=== PATIENT | male | born 1935 | race Caucasian/White ===

== ENCOUNTER → 2017-06-21 | Outpatient (CLI) | payer OTHER | LOC: FIMAGING 10:50 | DX: I10 Essential (primary) hypertension (principal); Z98.890 Other specified postprocedural states; Z87.891 Personal history of nicotine dependence ==

== ENCOUNTER 2017-07-01 19:18 | Emergency (ER) | payer OTHER ==
[2017-07-01 19:26] VITALS: PULSE 85; RESP 16; TEMP 97.7; O2SAT 95
[2017-07-01 19:37] VITALS: BP 197/87
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
== END 2017-07-01 20:07 | disposition home or self-care (01) ==
LOC: EDUNIT#
DX: S40.011A Contusion of right shoulder, initial encounter (principal); I10 Essential (primary) hypertension; I25.10 Atherosclerotic heart disease of native coronary artery without angina pectoris; J44.9 Chronic obstructive pulmonary disease, unspecified; Z87.891 Personal history of nicotine dependence; W20.8XXA Other cause of strike by thrown, projected or falling object, initial encounter; Y99.8 Other external cause status; Y93.01 Activity, walking, marching and hiking

== ENCOUNTER 2018-01-24 19:26 | Observation (INO) | payer OTHER ==
[2018-01-24] MEDS ORDERED: NS 1,000 ML IV ONE (19:42)
[2018-01-24] MEDS ORDERED: ONDANSETRON DISINTEGRATING 4 MG TAB PO ONE (19:42)
[2018-01-24] MEDS ORDERED: MECLIZINE HCL 25 MG TAB PO ONE (19:42)
--- NOTE | 2018-01-24 19:42 | EDPHY ---
H & P Stated Complaint: vertigo nausea Time Seen by Provider: 01/24/18 19:27 HPI/ROS: CHIEF COMPLAINT: Vertigo HISTORY OF PRESENT ILLNESS: The patient presents the ED with an episode of acute peripheral vertigo which began earlier today. The patient has a history of intermittent BPV. Patient did have his primary care provider attempt the Rachid maneuver without improvement of his symptoms. Today he developed some nausea and vomiting and worsening vertigo. He had no medications at home for management of the symptoms and presents to the ED for further evaluation. Patient denies any history of fall or trauma. He denies any complaints of numbness or weakness in the extremities. He has no problems with his vision or speech. REVIEW OF SYSTEMS: A comprehensive 10 point review of systems is otherwise negative aside from elements mentioned in the history of present illness. Source: Patient Exam Limitations: No limitations - Personal History Current Tetanus/Diphtheria Vaccine: Yes Current Tetanus Diphtheria and Acellular Pertussis (TDAP): Yes - Medical/Surgical History Hx Asthma: Yes Hx Chronic Respiratory Disease: Yes Hx Diabetes: No Hx Cardiac Disease: Yes Hx Renal Disease: No Hx Cirrhosis: No Hx Alcoholism: No Hx HIV/AIDS: No Hx Splenectomy or Spleen Trauma: No Other PMH: copd, htn, CAD, Heart stents x 9. Carotid stent - Social History Smoking Status: Former smoker - Physical Exam Exam: General Appearance: Alert, no distress Eyes: Pupils equal and round no pallor or injection ENT, Mouth: Mucous membranes moist Respiratory: There are no retractions, lungs are clear to auscultation Cardiovascular: Regular rate and rhythm Gastrointestinal: Abdomen is soft and nontender, no masses, bowel sounds normal Neurological: A&O, normal motor function, normal sensory exam, normal cranial nerves, mild horizontal nystagmus noted with rightward gaze Skin: Warm and dry, no rashes Musculoskeletal: Neck is supple nontender Extremities: symmetrical, full range of motion Psychiatric: Patient is oriented X 3, there is no agitation Constitutional: Initial Vital Signs Temperature (C) 36.6 C 01/24/18 19:30 Heart Rate 73 01/24/18 19:30 Respiratory Rate 18 01/24/18 19:30 Blood Pressure 190/86 H 01/24/18 19:30 O2 Sat (%) 93 01/24/18 19:30 O2 Delivery Mode Room Air Allergies/Adverse Reactions: loratadine Allergy (Verified 07/01/17 19:26) Home Medications: Medication Instructions Recorded Albuterol 07/01/17 Atorvastatin Calcium 07/01/17 Pantoprazole Sodium 07/01/17 Symbicort 160-4.5 Mcg Inh (*) 07/01/17 Medical Decision Making ED Course/Re-evaluation: The patient presents to the ED with fairly typical benign positional vertigo. Patient received meclizine and Zofran in the emergency department. He also received 1 L of normal saline. CBC and serum chemistries are unremarkable. The patient underwent serial examinations over a 3 hr period in the emergency department. He continues to have ongoing vertigo and is unable to safely ambulate. He will require admission to the hospital. The patient's neurologic examination suggest no features of central vertigo. Consultation was made with the hospitalist service. The patient will be admitted by Dr. Call this evening. Blood pressure recheck at 10:15 p.m. is 170/82. Differential Diagnosis: Differential diagnosis considered includes benign positional vertigo, labyrinthitis, TIA, central vertigo - Data Points Laboratory Results: Laboratory Results 01/24/18 20:30 01/24/18 20:30 01/24/18 01/24/18 20:30 20:30 WBC 5.27 10^3/uL 10^3/uL (3.80-9.50) RBC 4.72 10^6/uL 10^6/uL (4.40-6.38) Hgb 14.6 g/dL g/dL (13.7-17.5) Hct 43.4 % % (40.0-51.0) MCV 91.9 fL fL (81.5-99.8) MCH 30.9 pg pg (27.9-34.1) MCHC 33.6 g/dL g/dL (32.4-36.7) RDW 13.2 % % (11.5-15.2) Plt Count 180 10^3/uL 10^3/uL (150-400) MPV 10.7 fL fL (8.7-11.7) Neut % (Auto) 80.5 % H % (39.3-74.2) Lymph % (Auto) 12.5 % L % (15.0-45.0) [place] % (Auto) 5.1 % % (4.5-13.0) Eos % (Auto) 0.9 % % (0.6-7.6) Baso % (Auto) 0.8 % % (0.3-1.7) Nucleat RBC Rel Count 0.0 % % (0.0-0.2) Absolute Neuts (auto) 4.24 10^3/uL 10^3/uL (1.70-6.50) Absolute Lymphs (auto) 0.66 10^3/uL L 10^3/uL (1.00-3.00) Absolute Monos (auto) 0.27 10^3/uL L 10^3/uL (0.30-0.80) Absolute Eos (auto) 0.05 10^3/uL 10^3/uL (0.03-0.40) Absolute Basos (auto) 0.04 10^3/uL 10^3/uL (0.02-0.10) Absolute Nucleated RBC 0.00 10^3/uL 10^3/uL (0-0.01) Immature Gran % 0.2 % % (0.0-1.1) Immature Gran # 0.01 10^3/uL 10^3/uL (0.00-0.10) Sodium 140 mEq/L mEq/L (135-145) Potassium 4.1 mEq/L mEq/L (3.3-5.0) Chloride 107 mEq/L mEq/L (97-110) Carbon Dioxide 23 mEq/l mEq/l (22-31) Anion Gap 10 mEq/L mEq/L (8-16) BUN 20 mg/dL mg/dL (7-23) Creatinine 0.7 mg/dL mg/dL (0.7-1.3) Estimated GFR > 60 Glucose 104 mg/dL H mg/dL (70-100) Calcium 8.5 mg/dL mg/dL (8.5-10.4) Medications Given: Discontinued Medications Sodium Chloride (Ns) 1,000 mls @ 0 mls/hr IV EDNOW ONE; Wide Open PRN Reason: Protocol Stop: 01/24/18 19:43 Last Admin: 01/24/18 20:00 Dose: 1,000 mls Meclizine HCl (Meclizine Hcl) 25 mg PO EDNOW ONE Stop: 09/27/18 19:43 Last Admin: 01/24/18 19:58 Dose: 25 mg Ondansetron HCl (Zofran Odt) 4 mg PO EDNOW ONE Stop: 01/24/18 19:43 Last Admin: 01/24/18 19:57 Dose: 4 mg Departure - Departure Disposition: [facility] Inpatient Acute Clinical Impression: Benign positional vertigo Condition: Good Referrals: Patient,NotPresent [Unknown] - As per Instructions
[2018-01-24 20:40] LABS: PLATELET COUNT 180 10^3/uL (150-400)
[2018-01-24] MEDS ORDERED: ONDANSETRON 4 MG/2 ML VIAL IVP PRN (22:52)
[2018-01-24] MEDS ORDERED: ACETAMINOPHEN 325 MG TAB PO PRN (22:52)
[2018-01-24] MEDS ORDERED: MECLIZINE HCL 25 MG TAB PO PRN (22:55)
[2018-01-24] MEDS ORDERED: LORazepam 2 MG/ML INJ IVP PRN (22:55)
[2018-01-24] MEDS ORDERED: NS 1,000 ML IV SCH (23:00)
--- NOTE | 2018-01-24 23:03 | PDGENHP ---
History and Physical - Chief Complaint Vertigo - History of Present Illness Source-patient able to provide history appears reliable. His fiancee is at bedside supplements details. EMR was reviewed and case discussed with ED provider. HPI-pleasant 82-year-old gentleman with past medical history significant for COPD, HLD, CAD with history of stenting x9 carotid artery stenosis status post bilateral stenting eczema and a history of a vertigo in 2013 who presents to the emergency department today with complaints of sudden onset of symptoms starting earlier today. Patient reports that he has alternating spinning to the right and to the left. He developed nausea vomiting. He went to see his PCP at the [place] on an Rachid maneuver was attempted but worsened his symptoms. On patient denies any acute changes in vision aside from the spitting he does not have any diplopia or visual deficits. He denies any numbness tingling in or tinnitus. Patient does report a headache behind his eyes. He denies any history of migraine headaches or headaches on her normal basis. Patient due to his vertiginous symptoms reports that he was unable to stand with any stability and given his persistent nausea vomiting he presented to the ED for further evaluation. In the ED, patient received IV fluids and meclizine. He denies any improvement in his symptoms any continues to alternate on spinning to the right than the left. Patient reports that he has had poor oral intake and hydration throughout the course the day and feels quite dehydrated. Patient reports in 2013 he had similar symptoms in required hospitalization for approximately 3 days before his symptoms spontaneously resolved. Patient denies any fevers chills or recent illness. Tonya reports that he is always feeling cold. History Information - Allergies/Home Medication List Allergies/Adverse Reactions: loratadine Allergy (Verified 07/01/17 19:26) Home Medications: Albuterol 07/01/17 [Last Taken Unknown] Atorvastatin Calcium 07/01/17 [Last Taken Unknown] Pantoprazole Sodium 07/01/17 [Last Taken Unknown] Symbicort 160-4.5 Mcg Inh (*) 07/01/17 [Last Taken Unknown] I have personally reviewed and updated: family history, medical history, social history, surgical history - Past Medical History Additional medical history: BPPV in 2013 patient was admitted to the [place] in [place] for 3 days due to symptoms which resolved spontaneously. COPD, asthma. Patient reports per previous oxygen dependence however when he temporarily moved to [place] he no longer required it and has not had any oxygen since returning back to [place]. HLD. CAD with history of stenting x9. Carotid artery stenosis status post stenting bilaterally. Eczema to lower extremities - Surgical History Additional surgical history: Cardiac cath with stenting. Carotid artery stenting. Hernia repair. Left foot surgery for a benign growth. Cataract extraction with lens placement bilaterally. - Family History Additional family history: Brother with history of seizures. Denies any family history of vertigo, CAD, CVA. - Social History Smoking Status: Former smoker (Patient quit at age 37) Alcohol Use: Rarely Drug Use: None Additional social history: Patient is engaged. Cor status DNR DNI. Review of Systems Review of Systems: ROS: 10pt was reviewed & negative except for what was stated in HPI & below Constitutional: Reports: chills (Always cold.). Denies: fever, recent illness EENMT: Denies: blurred vision, nose congestion, sore throat Cardiac: Reports: no symptoms Respiratory: Reports: cough (Chronic nonproductive cough) Gastrointestinal: Reports: vomitting, nausea. Denies: abdominal pain, diarrhea Genitourinary: Reports: no symptoms Muscolosketal: Reports: joint pain (Bilateral knees.). Denies: muscle pain Skin: Reports: rash (Patient with history of eczema. Chronic persistent rashes to right anterior leg left lateral knee and posterior knees.) Neurological: Reports: other (HPI). Denies: anxiety, depressed, numbness, tingling Hematologic/Lymphatic: Reports: no symptoms Physical Exam Physical Exam: Selected Entries 01/24/18 19:30 Blood Pressure Automatic Method Heart Rate 73 Respiratory 18 Rate O2 Sat (%) 93 Temperature (C) 36.6 C Blood Pressure 190/86 H Mean Arterial 120 H Pressure (MAP) O2 Delivery Room Air Mode Temperature Oral Source Temp Pulse Resp BP Pulse Ox 36.6 C 74 18 181/91 H 96 01/24/18 19:30 01/24/18 22:54 01/24/18 22:54 01/24/18 22:54 01/24/18 22:54 Constitutional: no apparent distress, chronically ill appearing, uncomfortable, other (NAD. Patient lays quietly in bed he is wrapped in multiple layers of blankets. His fiancee is at bedside.) Eyes: PERRL (Decreased reactivity to light bilaterally but symmetric no scleral icterus 2nd), anicteric sclera, EOMI, scleral injection, other (Positive for nystagmus with to the right) Ears, Nose, Mouth, Throat: hearing normal, dry mucous membranes, hard of hearing (Does wear hearing aids), other (No nasal discharge), No oral ulcer, No poor dentition (Upper edentulous) Cardiovascular: regular rate and rhythym, no murmur, rub, or gallop (Slightly distant heart sounds limiting exam.), pulses symmetric bilaterally, No edema Peripheral Pulses: 1+: dorsalis-pedis (R), dorsalis-pedis (L) Respiratory: no respiratory distress, no rales or rhonchi, clear to auscultation , reduced air movement (Decreased movement bibasilarly. Overall clear.) Gastrointestinal: normoactive bowel sounds, soft, non-tender abdomen, no palpable masses, No distension Genitourinary: no bladder tenderness, No avalos in urethra Skin: warm, normal color, no fluctuance, rash (Right lower anterior leg. Posterior knees bilaterally. And left proximal lateral area of flaking fissured lesions without any syringe surrounding erythema edema or fluctuance.) , No abrasion Musculoskeletal: generalized weakness, other (Patient is able to move his extremities while lying in bed. Strength overall decreased.) Neurologic: AAOx3, sensation intact bilaterally, other (Grossly nonfocal exam.) , No facial droop Psychiatric: interacting appropriately, not anxious, not encephalopathic, thought process linear, flat affect, No poor insight, No poor judgement, No poor memory Lab Data & Imaging Review 01/24/18 20:30 01/24/18 20:30 WBC 5.27 10^3/uL (3.80-9.50) 01/24/18 20:30 RBC 4.72 10^6/uL (4.40-6.38) 01/24/18 20:30 Hgb 14.6 g/dL (13.7-17.5) 01/24/18 20:30 Hct 43.4 % (40.0-51.0) 01/24/18 20:30 MCV 91.9 fL (81.5-99.8) 01/24/18 20:30 MCH 30.9 pg (27.9-34.1) 01/24/18 20:30 MCHC 33.6 g/dL (32.4-36.7) 01/24/18 20:30 RDW 13.2 % (11.5-15.2) 01/24/18 20:30 Plt Count 180 10^3/uL (150-400) 01/24/18 20:30 MPV 10.7 fL (8.7-11.7) 01/24/18 20:30 Neut % (Auto) 80.5 % (39.3-74.2) H 01/24/18 20:30 Lymph % (Auto) 12.5 % (15.0-45.0) L 01/24/18 20:30 [place] % (Auto) 5.1 % (4.5-13.0) 01/24/18 20: Eos % (Auto) 0.9 % (0.6-7.6) 01/24/18 20: Baso % (Auto) 0.8 % (0.3-1.7) 01/24/18: Nucleat RBC Rel Count 0.0 % (0.0-0.2) 01/24/18 20:30 Absolute Neuts (auto) 4.24 10^3/uL (1.70-6.50) 01/24/18 20:30 Absolute Lymphs (auto) 0.66 10^3/uL (1.00-3.00) L 01/24/18 20:30 Absolute Monos (auto) 0.27 10^3/uL (0.30-0.80) L 01/24/18 20:30 Absolute Eos (auto) 0.05 10^3/uL (0.03-0.40) 01/24/18 20:30 Absolute Basos (auto) 0.04 10^3/uL (0.02-0.10) 01/24/18 20:30 Absolute Nucleated RBC 0.00 10^3/uL (0-0.01) 01/24/18 20: Immature Gran % 0.2 % (0.0-1.1) 01/24/18 20:30 Immature Gran # 0.01 10^3/uL (0.00-0.10) 01/24/18 20:30 Sodium 140 mEq/L (135-145) 01/24/18 20:30 Potassium 4.1 mEq/L (3.3-5.0) 01/24/18 20:30 Chloride 107 mEq/L (97-110) 01/24/18 20:30 Carbon Dioxide 23 mEq/l (22-31) 01/24/18 20:30 Anion Gap 10 mEq/L (8-16) 01/24/18 20:30 BUN 20 mg/dL (7-23) 01/24/18 20:30 Creatinine 0.7 mg/dL (0.7-1.3) 01/24/18 20:30 Estimated GFR > 60 01/24/18 20:30 Glucose 104 mg/dL (70-100) H 01/24/18 20:30 Calcium 8.5 mg/dL (8.5-10.4) 01/24/18 20:30 Assessment & Plan Assessment: 82-year-old male with history of HLD, CAD with history of stenting, carotid artery stenosis status post stenting and previous episode of vertigo presents with complaints of vertiginous symptoms. Benign positional vertigo (Acute) - supportive care with meclizine and IV fluids. Will try to avoid long-acting benzos in this elderly gentleman. Nausea vomiting - on worsened with his vertiginous symptoms. Continue with antiemetics p.r.n. Zofran. Dehydration - IV fluid supplementation overnight as noted above. Patient's mucous membranes still appear dry. Hypoxia - fiancee reports patient arrived with O2 sat in the 80s. He previously did require O2 when he was at elevation. He moved to [place] a few years ago and at [place] neural longer required supplementation. Will continue to titrate O2 to maintain sats greater than 90. Chronic medical issues CAD - status post stenting x9. Resume patient's home medication HLD - continue statin. Eczema - supportive care at this time. Patient with excoriations and some fissuring in these areas but no evidence of induration or fluctuance suggesting cellulitis. COPD - patient currently requiring supplemental oxygen. nebulizer available prn. FEN - IVF overnight and while patient still with nausea/vomiting. electrolytes adequate do not require supplementation. PPX - SCDs. COR - DNR/DNI. Dispo - Patient admitted to observation on the medical floor at this time for additional monitoring, anti-emetics and supportive care. hopeful patient will be able to discharge next 1-2 days, however patient does have history hospitalization for 3 days several years ago.
[2018-01-25] MEDS ORDERED: ALBUTEROL 3 ML DEYVIAL IH PRN (05:33)
[2018-01-25 11:48] VITALS: BP 137/60
[2018-01-25] MEDS ORDERED: ALBUTEROL 60 PUFFS/8 GM MDI IH SCH (12:15)
--- NOTE | 2018-01-25 12:28 | ASMTLACE ---
LACE Length of stay for Answers: Less than 1 day current admission Acuity / Level of Answers: No Care: Did the patient have an inpatient admission? Comorbidities - select Answers: Coronary Artery Disease all that apply # of Emergency department Answers: 1-2 visits in the last 6 months Score: 3 Date Signed: 01/25/2018 12:15 PM Electronically Signed By:Nina Caruso
--- NOTE | 2018-01-25 12:38 | ASDISCHSUM ---
Discharge Information Plan Status:Home with No Needs Medically Cleared to Leave: Discharge Date: CM D/C Disposition:Home, Routine, Self-Care ADT D/C Disposition:Home, Routine, Self-Care Projected Discharge Date: Transportation at D/C:Friend Discharge Delay Reason: Follow-Up Date: Discharge Slot: Final Diagnosis: Placement Information Patient Contact Information Contact Name:YULIANA Relationship:Bertrand Address: City:[place] Alternate Phone: State/[facility] Code:[place] Email: Financial Information Financial Class:Medicare Advantage Plans Primary Plan Desc:[employer] PLANS Primary Plan Number:[id number] Secondary Plan Desc: Secondary Plan Number: Assessment Information LACE LACE Length of stay for Answers: Less than 1 day current admission Acuity / Level of Answers: No Care: Did the patient have an inpatient admission? Comorbidities - select Answers: Coronary Artery Disease all that apply # of Emergency department Answers: 1-2 visits in the last 6 months Score: 3 Date Signed: 01/25/2018 12:15 PM Electronically Signed By:Nina Caruso [facility] CM Progress Note CM Note CM Note Notes: Pt's chart reviewed for d/c needs. Pt is an 82 y/o male admitted for vertigo. Vertigo has resolved and pt is being d/c'ed. there are no orders for OT/PT. Pt lives independently at [facility]. He has a significant other and for now will be returning to her apt. No c/m needs have been identified. D/C Plan: Independent at [facility] and with significant other. Date Signed: 01/25/2018 12:26 PM Electronically Signed By:Nina Caruso Intervention Information
--- NOTE | 2018-01-25 13:59 | GDS ---
DISCHARGE DIAGNOSES: 1. Vertigo. 2. Nausea, vomiting. 3. Dehydration. 4. Acute hypoxemia. PHYSICAL EXAM: GENERAL: The patient is alert. VITAL SIGNS: Afebrile at 36.3, pulse 71, respiratory rate 16, blood pressure is 137/60. He is saturating greater than 90% on room air. I have seen and evaluated the patient on the day of discharge. HOSPITAL COURSE: The patient is an 82-year-old male who presented to the emergency room with complai nts of acute dizziness. He was evaluated and diagnosed with. 1. Benign positional vertigo. The patient has had this in the past and has just recently been seen and evaluated at the [facility] for treatment and therapy. He received supportive care with IV fluids as wel l as meclizine. His symptoms have completely resolved, and he has returned to baseline. He is latrice ating regular diet and will continue meclizine in the outpatient setting as needed. 2. Nausea and vomiting. This has resolved though secondary likely to the patient's vertiginous symp toms. He is tolerating a regular diet. 3. Dehydration again in the setting of nausea and vomiting. IV fluids have been provided. The olvin ent appears hydrated. 4. Acute hypoxia. This has resolved prior to disposition. The patient is saturating appropriately on room air, as well as his other chronic medical problems are stable. He will be discharged home in dependently. There are no pending studies. Followup will be with his primary care physician. DISCHARGE MEDICATIONS: Please refer to EMR form. I have not adjusted the patient's previously presc ribed home medications. He has been recommended to take meclizine over the counter as needed for his vertigo. /[id number]/MODL
[2018-01-25] MEDS ORDERED: BUDESONIDE/FORMOTEROL 160/4.5 60 PUFFS/MDI IH SCH (21:00)
[2018-01-26] MEDS ORDERED: PANTOPRAZOLE SODIUM 40 MG TAB PO SCH (09:00)
[2018-01-26] MEDS ORDERED: ATORVASTATIN CALCIUM 40 MG TAB PO SCH (09:00)
[2018-01-26] MEDS ORDERED: ASPIRIN EC 81 MG TAB PO SCH (09:00)
== END 2018-01-25 15:15 | disposition home or self-care (01) ==
LOC: EDUNIT# → F3E 23:26
PROVIDERS: ADMIT Family Medicine; ATTEND Internal Medicine
DX: H81.10 Benign paroxysmal vertigo, unspecified ear (principal); R11.2 Nausea with vomiting, unspecified; E86.0 Dehydration; R09.02 Hypoxemia; J44.9 Chronic obstructive pulmonary disease, unspecified; I10 Essential (primary) hypertension; I25.10 Atherosclerotic heart disease of native coronary artery without angina pectoris; Z95.5 Presence of coronary angioplasty implant and graft; Z87.891 Personal history of nicotine dependence
CPT/HCPCS: 99285; G0378

== ENCOUNTER 2018-05-20 12:22 | Emergency (ER) | payer OTHER ==
[2018-05-20 12:31] VITALS: BP 176/119
--- NOTE | 2018-05-20 13:24 | EDPHY ---
General Time Seen by Provider: 05/20/18 12:50 Narrative: CLINICAL IMPRESSION: Right shoulder contusion ASSESSMENT/PLAN: 83 yo male presents to the ER with right shoulder pain x 4 days after he tripped over his cat 4 days ago and hit the lateral aspect of the shoulder on the corner of a dresser. He did not hit his head and reports no neck pain, UE radiculopathy or weakness. He admits to continued use of the arm despite injury and pain and believes this is exacerbating his pain. No radiologic e/o fracture or dislocation today. Elbow and wrist without pain, with FROM and distal NV exam intact. No chest wall pain, CP, SOB, dizziness, syncope, N/V, or abdominal pain. Doubt cardiac causes for pain. Arm was placed in a sling and he was encouraged to rest and f/u with ortho. Warning signs for return to ED outlined in d/c. DIFFERENTIAL DX: Differential includes but not limited to acute fracture, strain/sprain, joint dislocation, soft tissue contusion ED PROCEDURES: Procedure: Splint placement. A right arm sling splint was applied to right arm by mammography technician, supervised by myself. After application of the splint I returned and re-examined the patient. The splint was adequately immobilizing the joint and distal to the splint the patient's circulation and sensation was intact. ED COURSE: 1:15 p.m.: Preliminary x-rays read by myself with no evidence of acute fracture or dislocation. CHIEF COMPLAINT: Right shoulder pain x4 days HPI: 83 yo male presents to the ER with right shoulder pain x 4 days. Patient reports tripping over his cat 4 days ago and hitting the right shoulder into the corner of a dresser. He did not fall to the ground, did not hit his head and reports no neck pain. He is right hand dominant and admits he's continued to use his arm despite the pain. He is getting in June and in the process of moving into his girlfriend's apartment at [facility]. He denies prior arm injury or surgery. No numbness or weakness. No CP , SOB, dizziness, lightheadedness, syncope, back pain, abdominal pain, NV. PAST MEDICAL HISTORY: See nurse triage notes Pertinent Past Surgical History: no prior ortho surgery to right arm Social History: here with girlfriend, lives at [facility]. REVIEW OF SYSTEMS: All other systems negative Constitutional: No fever, no chills Musculoskeletal: No deformity, + joint pain, no neck pain Skin: No rashes, color change or open wounds. Neurological: No sensory loss or weakness. PHYSICAL EXAM: General Appearance: Alert, oriented, appropriate for age, cooperative, NAD, well hydrated, non-toxic appearing, laying on left side with right arm straight. VSS, no hypoxia. Neurological:Alert and oriented x 3, normal sensation of extremities Skin: Warm, dry, no rashes, no nodules on palpation. Musculoskeletal: Pain with abduction and internal rotation of right shoulder. Rotator cuff testing with slight weakness. Normal ROM of elbow and wrist. MEDICAL DECISION MAKING: Patient was seen independently. Secondary supervising physician at time of evaluation was Dr. Marx. Diagnosis: Right shoulder contusion/pain New, requires workup Summary: See assessment and plan for summary of ED visit Independent visualization of images, tracing, or specimens: yes Patient Progress: Stable. - History Smoking Status: Former smoker - Objective Vital Signs: Initial Vital Signs Temperature (C) 36.5 C 05/20/18 12:28 Heart Rate 69 05/20/18 12:28 Respiratory Rate 18 05/20/18 12:28 Blood Pressure 176/119 H 05/20/18 12:28 O2 Sat (%) 96 05/20/18 12:28 O2 Delivery Mode Room Air Allergies/Adverse Reactions: loratadine Allergy (Verified 05/20/18 12:27) Home Medications: Medication Instructions Recorded Albuterol [Proventil Inhaler HFA 2 puffs IH Q6 01/25/18 (*)] Aspirin EC [Aspirin EC 81 mg (*)] 81 mg PO DAILY 01/25/18 Atorvastatin Calcium 80 mg PO DAILY 01/25/18 Budesonide/Formoterol 160/4.5 2 puffs IH BID 01/25/18 [Symbicort 160-4.5 Mcg Inh (*)] Pantoprazole Sodium [Protonix 40mg 40 mg PO DAILY 01/25/18 (*)] Departure - Departure Disposition: Home, Routine, Self-Care Clinical Impression: Shoulder pain, acute Condition: Good Instructions: Shoulder Sprain (ED) Additional Instructions: DISCHARGE INSTRUCTIONS FROM YOUR DOCTOR Thank you for visiting our emergency department today. Please keep in mind that discharge from the emergency department does not mean that there is nothing wrong - it simply means that we have not identified an emergency condition that requires further evaluation or treatment in the hospital. You should always plan to follow up with primary care for re-evaluation of your condition in the next 2-3 days. If you have been referred to a specialist, please call as soon as possible (today or tomorrow) to schedule your follow up appointment at the appropriate time. [PRELIMINARY READ OF X-RAYS OF YOUR SHOULDER SO NO EVIDENCE OF ACUTE FRACTURE OR DISLOCATION. ] People present with illnesses and injuries in different ways, and it is always possible that we have missed something. You may always return for re-evaluation if symptoms worsen or if they are not improving or if you develop new/different symptoms. Again, thank you for choosing our emergency department. We hope that you feel better. Referrals: NONE *PRIMARY CARE P,. [Primary Care Provider] - As per Instructions Angel Berman MD [Medical Doctor] - 2-3 days, call for appt.
== END 2018-05-20 13:26 | disposition home or self-care (01) ==
DX: S40.011A Contusion of right shoulder, initial encounter (principal); W01.0XXA Fall on same level from slipping, tripping and stumbling without subsequent striking against object, initial encounter; Y92.9 Unspecified place or not applicable; Y99.9 Unspecified external cause status; Y93.9 Activity, unspecified